=== PATIENT | male | born 1940 | race Caucasian/White ===

== ENCOUNTER → 2017-03-20 | Outpatient (CLI) | payer MEDICARE ==
[~2017-03-20] MED LIST: ADALAT CC PO; ADALAT CC30 MG PO; AMLODIPINE BESYL5 MG PO; ASPIRIN EC81 M1 PO; CIPRO250 MG PO; COZAAR100 MG PO; HYDROCHLOROTH12.5 M1 PO; HYDROCHLOROTH12.5 MG PO; LORTAB 10-5001 EACH PO; MULTIPLE VITAMI1 T11 PO; ZESTRIL40 MG PO; [UNRECOGNIZED DRUG - REMARK]
--- NOTE | ~2017-03-20 | US128 ---
[id number] [facility]. [facility] [address]. [place], [place] [address] [id number] O MR#: [id number] Acc #: [id number] NAME: MARTHA HIGGINS : 1940 SEX: M STUDY DATE/TIME: 03/20/2017 13:29 UNIT: [facility]US ROOM: STUDY DESCRIPTION: Thyroid Attending Physician: Romel Cole M.D. Referring Physician: Romel Cole M.D. Ordering Physician: Romel Cole M.D. Primary Care Physician: Romel Cole M.D. MEDICAL IMAGING REPORT This report is preliminary unless electronic signature is present EXAM Thyroid ultrasound 03/20/2017 HISTORY Routine followup right nodules. No symptoms. FINDINGS In the right lobe of the gland, there is a mostly cystic upper pole nodule, about 10 x 8 x 5 mm in size. In the left lobe of the gland, there is a lower pole, hypoechoic, mostly cystic nodule, about 8 x 7 x 8 mm in size and a more subtle, solid, 5 x 6 x 5 mm nodule. All are less than a centimeter in size, and none are convincingly significantly changed since the prior ultrasound. In fact, the left lower pole nodule is slightly smaller. IMPRESSION Subcentimeter bilateral thyroid nodules. No growing nodule. No new abnormality. No indication for tissue sampling at this time. Dictated by... Dario Chaidez M.D. THIS IS AN ELECTRONICALLY VERIFIED REPORT Dario Chaidez M.D. at 03/23/2017 4:53 PM TEV/pcl TD: 03/20/2017 20:00 JOB #: [id number] MEDICAL IMAGING REPORT Page 1 of 1 COPY
== END | disposition home or self-care (01) ==
LOC: CGUS 12:55
DX: E04.1 Nontoxic single thyroid nodule (principal); E04.2 Nontoxic multinodular goiter
CPT/HCPCS: 76536